=== PATIENT | female | born 1980 | race Caucasian/White ===

== ENCOUNTER 2018-08-08 10:01 | Emergency (ER) | payer OTHER ==
[~2018-08-08] VITALS: Ht 172.7 cm; Wt 65.8 kg
[2018-08-08] MEDS ORDERED: SERTRALINE HCL50 MG PO (10:07)
[2018-08-08] MEDS ORDERED: TRAMADOL 50 MG50 MG PO (11:04)
[2018-08-08] MEDS ORDERED: KEFLEX500 M1 PO (11:14)
[2018-08-08 11:48] VITALS: BP 104/64
== END 2018-08-08 11:30 | disposition home or self-care (01) ==
LOC: ER 10:01
DX: S62.660A Nondisplaced fracture of distal phalanx of right index finger, initial encounter for closed fracture (principal); W20.8XXA Other cause of strike by thrown, projected or falling object, initial encounter; Y93.89 Activity, other specified; Y92.89 Other specified places as the place of occurrence of the external cause; Y99.8 Other external cause status